=== PATIENT | female | born 1995 | race Caucasian/White ===

== ENCOUNTER → 2019-10-18 20:33 | Observation (INO) | END | disposition home or self-care (01) | LOC: 1NENULAB | PROVIDERS: ADMIT Student in an Organized Health Care Education/Training Program; ATTEND Student in an Organized Health Care Education/Training Program ==

== ENCOUNTER 2019-12-31 10:42 | Observation (INO) ==
[2019-12-31 12:16] LABS: Bacteria,Urine Few per hpf (None-Few); Bilirubin,Urine Negative (Negative); Blood,Urine Negative (Negative); Clarity,Urine Turbid (Clear); Color,Urine Yellow (Yellow); Glucose,Urine (UA) Normal (Normal); Ketones,Urine Negative (Negative); Leukocyte Esterase,Urine Trace (Negative); Mucus,Urine Few per lpf (None-Few); Nitrite,Urine Negative (Negative); Protein,Urine 30 mg/dL (Neg-Trace); RBC,Urine 0-3 per hpf (0-3); Squamous Epithelial Cell,Urine Few per hpf (None-Few); Urobilinogen,Urine Normal (Normal)
[2019-12-31 12:17] LABS: Basophils % 0.2 %; Eosinophils # 0.1 K/mcL (0.0-0.6); Eosinophils % 0.7 %; Hematocrit 34.1 % (35.3-44.9); Hemoglobin 10.8 g/dL (11.5-15.4); Immature Granulocytes % 0.4 % (0-4); Lymphocytes # 2.3 K/mcL (0.6-4.6); Lymphocytes % 20.4 %; Mean Corpuscular HGB Conc 31.7 g/dL (31.6-35.5); Mean Corpuscular Hemoglobin 25.9 pg (28.0-33.3); Mean Corpuscular Volume 81.8 fL (83.0-100.0); Mean Platelet Volume 9.9 fL (9.4-12.4); Monocytes # 0.6 K/mcL (0.0-1.3); Monocytes % 5.5 %; Neutrophils # 8.1 K/mcL (1.6-8.9); Platelet Count 380 K/mcL (140-400); Red Blood Count 4.17 M/mcL (3.82-4.97); Red Cell Distribution Width 13.3 % (11.5-14.5); Segmented Neutrophils % 72.8 %; White Blood Count 11.2 K/mcL (4.3-11.1)
[2019-12-31 12:22] LABS: Protein/Creatinine Ratio,Urine 0.16 mg/mg (0.00-0.20)
[2019-12-31 12:32] LABS: Alanine Aminotransferase 8 Units/L (7-52); Aspartate Amino Transferase 12 Units/L (13-39); BUN/Creatinine Ratio 17 (6-26); Blood Urea Nitrogen 11 mg/dL (6-20); Lactate Dehydrogenase 134 Units/L (140-271); Uric Acid 4.3 mg/dL (2.3-7.6); eGFR For African Americans > 60 (> 60); eGFR For Non-African Americans > 60 (> 60)
== END 2019-12-31 13:25 | disposition home or self-care (01) ==
LOC: 1NENULAB
PROVIDERS: ADMIT Obstetrics & Gynecology; ATTEND Obstetrics & Gynecology

== ENCOUNTER 2020-01-04 12:56 | Observation (INO) ==
[2020-01-04 13:41] LABS: Total Volume 24 Hour,Urine 0.89 Liters (0.60-1.60)
== END 2020-01-04 14:25 | disposition home or self-care (01) ==
LOC: 1NENULAB
PROVIDERS: ADMIT Obstetrics & Gynecology; ATTEND Obstetrics & Gynecology

== ENCOUNTER → 2020-01-07 06:30 | Observation (INO) ==
[2020-01-06 22:51] LABS: Basophils % 0.2 %; Eosinophils # 0.1 K/mcL (0.0-0.6); Eosinophils % 0.8 %; Hematocrit 33.9 % (35.3-44.9); Hemoglobin 10.8 g/dL (11.5-15.4); Immature Granulocytes % 0.5 % (0-4); Lymphocytes # 2.8 K/mcL (0.6-4.6); Lymphocytes % 28.1 %; Mean Corpuscular HGB Conc 31.9 g/dL (31.6-35.5); Mean Corpuscular Hemoglobin 25.4 pg (28.0-33.3); Mean Corpuscular Volume 79.8 fL (83.0-100.0); Mean Platelet Volume 10.1 fL (9.4-12.4); Monocytes # 0.7 K/mcL (0.0-1.3); Monocytes % 6.8 %; Neutrophils # 6.4 K/mcL (1.6-8.9); Platelet Count 419 K/mcL (140-400); Red Blood Count 4.25 M/mcL (3.82-4.97); Red Cell Distribution Width 13.5 % (11.5-14.5); Segmented Neutrophils % 63.6 %
[2020-01-06 22:52] LABS: Bilirubin,Urine Negative (Negative); Blood,Urine Negative (Negative); Clarity,Urine Clear (Clear); Color,Urine Colorless (Yellow); Glucose,Urine (UA) Normal (Normal); Ketones,Urine Negative (Negative); Leukocyte Esterase,Urine Negative (Negative); Nitrite,Urine Negative (Negative); PH,Urine 6.5 pH Units (5.0-8.0); Protein,Urine Negative (Neg-Trace); Specific Gravity,Urine 1.005 (1.010-1.025); Urobilinogen,Urine Normal (Normal)
[2020-01-06 23:04] LABS: Protein/Creatinine Ratio,Urine 0.17 mg/mg (0.00-0.20)
[2020-01-06 23:14] LABS: Alanine Aminotransferase 9 Units/L (7-52); Aspartate Amino Transferase 12 Units/L (13-39); BUN/Creatinine Ratio 13 (6-26); Blood Urea Nitrogen 8 mg/dL (6-20); Lactate Dehydrogenase 139 Units/L (140-271); Uric Acid 4.3 mg/dL (2.3-7.6); eGFR For African Americans > 60 (> 60); eGFR For Non-African Americans > 60 (> 60)
[~2020-01-07 06:30] MED LIST: Prochlorperazine 10 MG/2 ML VIAL IVP PRN; Ringers Solution, Lactated 1,000 ML ONE
== END | disposition home or self-care (01) ==
LOC: 1NENULAB
PROVIDERS: ADMIT Obstetrics & Gynecology; ATTEND Obstetrics & Gynecology

== ENCOUNTER 2020-01-10 14:13 | Observation (INO) ==
[2020-01-10 15:04] LABS: Basophils % 0.2 %; Eosinophils # 0.1 K/mcL (0.0-0.6); Hematocrit 33.3 % (35.3-44.9); Hemoglobin 10.5 g/dL (11.5-15.4); Immature Granulocytes % 0.2 % (0-4); Lymphocytes # 2.1 K/mcL (0.6-4.6); Lymphocytes % 25.2 %; Mean Corpuscular HGB Conc 31.5 g/dL (31.6-35.5); Mean Corpuscular Hemoglobin 25.1 pg (28.0-33.3); Mean Corpuscular Volume 79.7 fL (83.0-100.0); Mean Platelet Volume 9.5 fL (9.4-12.4); Monocytes # 0.5 K/mcL (0.0-1.3); Monocytes % 5.8 %; Neutrophils # 5.5 K/mcL (1.6-8.9); Platelet Count 434 K/mcL (140-400); Red Blood Count 4.18 M/mcL (3.82-4.97); Red Cell Distribution Width 13.7 % (11.5-14.5); Segmented Neutrophils % 67.6 %; White Blood Count 8.1 K/mcL (4.3-11.1)
[2020-01-10 15:12] LABS: Protein/Creatinine Ratio,Urine 0.23 mg/mg (0.00-0.20)
[2020-01-10 15:26] LABS: Alanine Aminotransferase 7 Units/L (7-52); Aspartate Amino Transferase 12 Units/L (13-39); BUN/Creatinine Ratio 12 (6-26); Blood Urea Nitrogen 6 mg/dL (6-20); Lactate Dehydrogenase 134 Units/L (140-271); Uric Acid 4.1 mg/dL (2.3-7.6); eGFR For African Americans > 60 (> 60); eGFR For Non-African Americans > 60 (> 60)
== END 2020-01-10 15:49 | disposition home or self-care (01) ==
LOC: 1NENULAB
PROVIDERS: ADMIT Obstetrics & Gynecology; ATTEND Obstetrics & Gynecology

== ENCOUNTER 2020-01-12 06:00 | Inpatient (IN) ==
[2020-01-12] MEDS ORDERED: Metoclopramide 10 MG/2 ML VIAL IVP PRN (06:09)
[2020-01-12] MEDS ORDERED: Famotidine 20 MG/2 ML VIAL IVP PRN (06:09)
[2020-01-12] MEDS ORDERED: Naloxone 0.4 MG/ML INJ IVP PRN (06:09)
[2020-01-12] MEDS ORDERED: Lidocaine 1% 20 ML MDV INFILT PRN (06:09)
[2020-01-12] MEDS ORDERED: miSOPROStoL 25 MCG TABLET PO PRN (06:09)
[2020-01-12] MEDS ORDERED: EPHEDrine 50 MG/ML VIAL IVP PRN (06:42)
[2020-01-12 06:52] LABS: Basophils % 0.2 %; Eosinophils # 0.1 K/mcL (0.0-0.6); Eosinophils % 0.8 %; Hematocrit 36.4 % (35.3-44.9); Hemoglobin 11.4 g/dL (11.5-15.4); Immature Granulocytes % 0.4 % (0-4); Lymphocytes # 3.6 K/mcL (0.6-4.6); Lymphocytes % 33.7 %; Mean Corpuscular HGB Conc 31.3 g/dL (31.6-35.5); Mean Corpuscular Hemoglobin 25.3 pg (28.0-33.3); Mean Corpuscular Volume 80.9 fL (83.0-100.0); Monocytes # 0.6 K/mcL (0.0-1.3); Neutrophils # 6.3 K/mcL (1.6-8.9); Platelet Count 476 K/mcL (140-400); Red Cell Distribution Width 13.9 % (11.5-14.5); Segmented Neutrophils % 58.9 %; White Blood Count 10.7 K/mcL (4.3-11.1)
[2020-01-12 07:06] LABS: Alanine Aminotransferase 10 Units/L (7-52); Aspartate Amino Transferase 21 Units/L (13-39); BUN/Creatinine Ratio 13 (6-26); Blood Urea Nitrogen 9 mg/dL (6-20); Lactate Dehydrogenase 252 Units/L (140-271); eGFR For African Americans > 60 (> 60); eGFR For Non-African Americans > 60 (> 60)
[2020-01-12] MEDS: Ondansetron 4 MG/2 ML VIAL IVP PRN ×3 (08:40→23:07)
[2020-01-12] MEDS: *HR* FentaNYL (PF) 100 MCG/2 ML VIAL IVP PRN ×2 (08:40→09:44)
[2020-01-12] MEDS: Ringers Solution, Lactated 1,000 ML IVC SCH ×2 (10:17→16:17)
[2020-01-12] MEDS ORDERED: Oxytocin 20 units/ LR 1000 mL 20 UNIT/1,000 ML BAG IVC SCH (11:45)
[2020-01-12] MEDS ORDERED: Ropivacaine/PF 0.2% 20 ML VIAL ONE (15:39)
[2020-01-12] MEDS ORDERED: *HR* FentaNYL (PF) 100 MCG/2 ML VIAL ONE (15:39)
[2020-01-12] MEDS: Epidural Premix (fent/bupiv) 110 ML EP SCH ×2 (16:19→23:06)
[2020-01-12 18:31] LABS: Amphetamine Screen,Urine Negative ng/mL (Cutoff=1000); Barbiturate Screen,Urine Negative ng/mL (Cutoff=200); Benzodiazepines Screen,Urine Negative ng/mL (Cutoff=200); Cannabinoid Screen,Urine Negative ng/mL (Cutoff = 50); Cocaine Screen,Urine Negative ng/mL (Cutoff= 300); Creatinine,Urine 95 mg/dL; Opiate Screen,Urine Negative ng/mL (Cutoff=300); Phencyclidine Screen,Urine Negative ng/mL (Cutoff=25); Protein/Creatinine Ratio,Urine 0.42 mg/mg (0.00-0.20)
[2020-01-13] MEDS ORDERED: Ropivacaine/PF 0.2% 20 ML VIAL ONE (01:39)
[2020-01-13] MEDS ORDERED: CeFAZolin Syr 3,000MG/30 ML 3,000 MG/30 ML SYRINGE IVPB ONE (02:01)
[2020-01-13] MEDS ORDERED: Lidocaine/EPI 1:200k 2% PF 20 ML VIAL ONE (02:05)
[2020-01-13] MEDS ORDERED: *HR* Oxytocin 10 UNIT/ML VIAL IM ONE ×2 (02:06→03:11)
[2020-01-13] MEDS ORDERED: Acetaminophen IV 1,000 MG/100 ML INFUS..BTL ONE (02:08)
[2020-01-13] MEDS ORDERED: *HR* Morphine Sulfate/PF 10 MG/10 ML AMPUL ONE (02:13)
[2020-01-13] MEDS ORDERED: Ringers Solution, Lactated 1,000 ML ONE ×2 (02:20→03:12)
[2020-01-13] MEDS ORDERED: Ondansetron 4 MG/2 ML VIAL ONE (02:35)
[2020-01-13] MEDS ORDERED: *HR* HYDROmorphone PF 0.5 MG/0.5 ML SYRINGE IVP PRN (02:57)
[2020-01-13] MEDS ORDERED: Ondansetron 4 MG/2 ML VIAL IVP ONE (02:57)
[2020-01-13] MEDS ORDERED: *HR* OxyCODONE Immed Rel 5 MG TABLET PO PRN (02:57)
[2020-01-13] MEDS ORDERED: *HR* Promethazine 25 MG/ML VIAL IVP PRN (02:57)
[2020-01-13] MEDS ORDERED: Ondansetron 4 MG/2 ML VIAL IVP PRN (05:56)
[2020-01-13] MEDS ORDERED: Naloxone 0.4 MG/ML INJ IVP PRN (05:56)
[2020-01-13] MEDS ORDERED: Sennosides 8.6 MG TABLET PO PRN (05:56)
[2020-01-13] MEDS ORDERED: Oxytocin 20 units/ LR 1000 mL 20 UNIT/1,000 ML BAG IVC SCH ×2 (05:56)
[2020-01-13] MEDS ORDERED: Ringers Solution, Lactated 1,000 ML IVC SCH (05:56)
[2020-01-13] MEDS ORDERED: Rho Immune Globulin 1,500 UNIT SYRINGE IM ONE (05:56)
[2020-01-13] MEDS ORDERED: Metoclopramide 10 MG/2 ML VIAL IVP PRN (05:56)
[2020-01-13] MEDS: Ibuprofen 600 MG TABLET PO PRN ×3 (06:10→20:59)
[2020-01-13] MEDS: cephALEXin 500 MG CAPSULE PO SCH ×3 (07:49→20:58)
[2020-01-13] MEDS: metroNIDAZOLE 500 MG TABLET PO SCH ×3 (07:49→20:59)
[2020-01-13] MEDS: Prenatal Vit/FA 1 EACH TABLET PO SCH (07:49)
[2020-01-13] MEDS: *HR* OxyCODONE/APAP 5/325 TABLET PO PRN ×3 (07:50→23:21)
[2020-01-13] MEDS: Simethicone 80 MG TAB.CHEW PO PRN (20:59)
[2020-01-14 03:12] LABS: Basophils % 0.1 %; Eosinophils # 0.1 K/mcL (0.0-0.6); Eosinophils % 0.3 %; Hematocrit 28.9 % (35.3-44.9); Immature Granulocytes % 0.6 % (0-4); Lymphocytes # 2.2 K/mcL (0.6-4.6); Lymphocytes % 12.7 %; Mean Corpuscular HGB Conc 31.5 g/dL (31.6-35.5); Mean Corpuscular Hemoglobin 25.6 pg (28.0-33.3); Mean Corpuscular Volume 81.4 fL (83.0-100.0); Mean Platelet Volume 9.5 fL (9.4-12.4); Monocytes # 1.1 K/mcL (0.0-1.3); Monocytes % 6.1 %; Platelet Count 349 K/mcL (140-400); Red Blood Count 3.55 M/mcL (3.82-4.97); Red Cell Distribution Width 14.2 % (11.5-14.5); Segmented Neutrophils % 80.2 %
[2020-01-14 03:17] LABS: Hemoglobin 9.1 g/dL (11.5-15.4); White Blood Count 17.4 K/mcL (4.3-11.1)
[2020-01-14] MEDS: Ibuprofen 600 MG TABLET PO PRN ×3 (07:57→23:58)
[2020-01-14] MEDS: Simethicone 80 MG TAB.CHEW PO PRN (07:59)
[2020-01-14] MEDS: cephALEXin 500 MG CAPSULE PO SCH ×3 (08:00→19:49)
[2020-01-14] MEDS: Prenatal Vit/FA 1 EACH TABLET PO SCH (08:00)
[2020-01-14] MEDS: metroNIDAZOLE 500 MG TABLET PO SCH ×3 (08:01→19:49)
[2020-01-14] MEDS: *HR* OxyCODONE/APAP 5/325 TABLET PO PRN ×4 (08:49→21:00)
[2020-01-15] MEDS: *HR* OxyCODONE/APAP 5/325 TABLET PO PRN ×2 (01:26→08:43)
[2020-01-15] MEDS: Prenatal Vit/FA 1 EACH TABLET PO SCH (07:29)
[2020-01-15] MEDS: Simethicone 80 MG TAB.CHEW PO PRN (07:29)
[2020-01-15] MEDS: Ibuprofen 600 MG TABLET PO PRN (07:29)
[2020-01-15 08:33] VITALS: BP 117/78
== END 2020-01-15 11:10 | disposition home or self-care (01) | DRG 788 ==
LOC: 1NENULAB 06:00 → 1NENUOBS 01-13 05:51
PROVIDERS: ADMIT Obstetrics & Gynecology; ATTEND Obstetrics & Gynecology

== ENCOUNTER 2022-02-25 12:03 | Inpatient (IN) ==
[2022-02-25] MEDS ORDERED: 0.9 % Sodium Chloride 1,000 ML IVC ONE (16:14)
[2022-02-25] MEDS ORDERED: Ondansetron 4 MG/2 ML VIAL IVP ONE (16:47)
[2022-02-25] MEDS ORDERED: Scopolamine Patch 1.5 MG PATCH.TD72 TD ONE (17:34)
[2022-02-25 17:36] LABS: Basophils % 0.2 %; Eosinophils % 0.4 %; Hemoglobin 13.2 g/dL (11.5-15.4); Immature Granulocytes % 0.3 % (0-4); Lymphocytes % 20.5 %; Mean Corpuscular Hemoglobin 27.8 pg (28.0-33.3); Mean Corpuscular Volume 84.4 fL (83.0-100.0); Mean Platelet Volume 10.1 fL (9.4-12.4); Monocytes # 0.5 K/mcL (0.0-1.3); Monocytes % 5.1 %; Platelet Count 279 K/mcL (140-400); Red Blood Count 4.74 M/mcL (3.82-4.97); Segmented Neutrophils % 73.5 %; White Blood Count 9.6 K/mcL (4.3-11.1)
[2022-02-25] MEDS ORDERED: Pyridoxine (B-6) 50 MG TABLET PO SCH ×2 (18:00→18:15)
[2022-02-25] MEDS ORDERED: Famotidine 20 MG/2 ML VIAL IVP SCH (18:00)
[2022-02-25 18:26] LABS: Alanine Aminotransferase 37 Units/L (7-52); Albumin 3.9 g/dL (3.5-5.7); Albumin/Globulin Ratio 1.1 (1.1-2.2); Alkaline Phosphatase 44 Units/L (34-104); Aspartate Amino Transferase 27 Units/L (13-39); BUN/Creatinine Ratio 13 (6-26); Bilirubin,Direct 0.1 mg/dL (0.0-0.2); Bilirubin,Indirect 0.4 mg/dL (0.0-1.0); Bilirubin,Total 0.5 mg/dL (0.3-1.0); Blood Urea Nitrogen 8 mg/dL (6-20); Carbon Dioxide 17 mEq/L (23-29); Chloride 102 mEq/L (98-107); Globulin 3.5 g/dL (2.4-3.5); Glucose 66 mg/dL (70-105); Lipase 30 Units/L (11-82); Magnesium 1.8 mg/dL (1.6-2.6); Osmolality,Calculated 275 (280-300); Phosphorous 3.8 mg/dL (2.7-4.5); Potassium 4.6 mEq/L (3.5-5.1); Sodium 134 mEq/L (136-145); Total Protein 7.4 g/dL (6.4-8.9)
[2022-02-25] MEDS ORDERED: Scopolamine Patch 1.5 MG PATCH.TD72 TD SCH (23:00)
[2022-02-25] MEDS ORDERED: Potassium Chloride 10 MEQ in D5% in 0.9% NACL 1,000 ML IVC SCH (23:15)
[2022-02-26] MEDS ORDERED: Metoclopramide 10 MG/2 ML VIAL IVP SCH
[2022-02-26] MEDS ORDERED: Potassium Chloride 10 MEQ in D5% in 0.9% NACL 1,000 ML IVC SCH ×2 (00:59)
[2022-02-26] MEDS ORDERED: Prenatal Vit/FA 1 EACH TABLET PO ONE (00:59)
[2022-02-26] MEDS: Ondansetron 4 MG/2 ML VIAL IVP SCH ×4 (01:05→19:33)
[2022-02-26] MEDS: Famotidine 20 MG/2 ML VIAL IVP SCH ×2 (05:52→18:20)
[2022-02-26] MEDS: Metoclopramide 10 MG/2 ML VIAL IVP SCH ×2 (08:01→17:09)
[2022-02-26] MEDS: Pyridoxine (B-6) 50 MG TABLET PO SCH ×2 (09:22→21:23)
[2022-02-26] MEDS ORDERED: Ondansetron 4 MG/2 ML VIAL IVP SCH (18:00)
[2022-02-27] MEDS: Ondansetron ODT 4 MG TAB.RAPDIS SL PRN ×3 (03:11→16:41)
[2022-02-27] MEDS: Pyridoxine (B-6) 50 MG TABLET PO SCH (08:36)
[2022-02-27] MEDS ORDERED: Famotidine 20 MG TABLET PO SCH (09:00)
[2022-02-27 09:49] VITALS: BP 111/63; PULSE 83; TEMP 98; O2SAT 96
[2022-02-28] MEDS ORDERED: Scopolamine Patch 1.5 MG PATCH.TD72 TD SCH ×2 (23:00)
== END 2022-02-27 17:40 | disposition home or self-care (01) | DRG 833 ==
LOC: 1NENUOBS 12:03 → EMEROOARM 12:03 → 1NENUOBS 23:30 → 1NENUPED 02-26 23:20
PROVIDERS: ADMIT Student in an Organized Health Care Education/Training Program; ATTEND Student in an Organized Health Care Education/Training Program